=== PATIENT | female | born 1940 | race Caucasian/White ===

== ENCOUNTER 2018-06-21 10:31 | Day surgery (SDC) | payer OTHER, MEDICARE ==
[2018-06-20 13:41] VITALS: BMI 26.4
[2018-06-21 13:12] VITALS: TEMP 97.3
[2018-06-21 13:50] VITALS: BP 109/88; PULSE 70
--- NOTE | 2018-06-23 16:35 | PATH ---
Surgical Pathology Report Patient Name: LESVIA CHOU [facility]. Rec. #: [id number] /Age/Gender: 1940 (Age: 78) / F Account: [id number] Location: [facility]-ENDOSCOPY Taken: 06/21/2018 Received: 06/22/2018 Reported: 06/23/2018 Physicians: Kj Kolb D.O. Specimen(s) Received A: PROXIMAL TRANSVERSE COLON POLYP B: SUBMUCOSAL POLYP AT HEPATIC FLEXURE C: POLYP SIGMOID Clinical History History of colon polyp, rectal bleeding Postoperative diagnosis: Diverticulosis, polyps, hemorrhoids Final Diagnosis A. PROXIMAL TRANSVERSE COLON POLYP, POLYPECTOMY: TUBULAR ADENOMA. B. SUBMUCOSAL POLYP AT HEPATIC FLEXURE, BIOPSY: COLONIC MUCOSA WITH SURFACE HYPERPLASTIC CHANGE. SCANTY BENIGN LOOSE FIBROCONNECTIVE TISSUE PRESENT IN THE SUBMUCOSA. CLINICAL CORRELATION RECOMMENDED. C. SIGMOID POLYP, POLYPECTOMY: HYPERPLASTIC POLYP. Electronically Signed Liane Mullins M.D. Gross Description A. Received in formalin, labeled "proximal transverse colon polyp" is a fernandez, irregular portion of soft tissue measuring 0.5 cm. in greatest dimension. The specimen is submitted in toto in one cassette. B. Received in formalin, labeled "biopsy submucosal polyp at hepatic flexure" are 3 fernandez, irregular portions of soft tissue ranging from 0.2-0.3 cm. in greatest dimension. The specimens are submitted in toto in one cassette. C. Received in formalin, labeled "biopsy sigmoid polyp" are 2 fernandez, irregular portions of soft tissue measuring 0.3 and 0.4 cm. in greatest dimension. The specimens are submitted in toto in one cassette. /06/22/2018 saudi06/22/2018
== END 2018-06-21 14:03 | disposition home or self-care (01) ==
LOC: JASU-ENDO 10:31
PROVIDERS: ATTEND Internal Medicine Gastroenterology
PROC: 0DBN8ZX Excision of Sigmoid Colon, Via Natural or Artificial Opening Endoscopic, Diagnostic (ICD-10-PCS; 2018-06-21)
PROC: 0DBL8ZX Excision of Transverse Colon, Via Natural or Artificial Opening Endoscopic, Diagnostic (ICD-10-PCS; principal; 2018-06-21 12:00)
DX: Z12.11 Encounter for screening for malignant neoplasm of colon (principal); Z86.010 Personal history of colon polyps; K57.30 Diverticulosis of large intestine without perforation or abscess without bleeding; K64.8 Other hemorrhoids; D12.5 Benign neoplasm of sigmoid colon; D12.3 Benign neoplasm of transverse colon
CPT/HCPCS: 88305-TC

== ENCOUNTER 2024-07-09 04:25 | Observation (INO) | payer OTHER, MEDICARE ==
[2024-07-09] MEDS ORDERED: LIDOCAINE 4% PATCH TP ONE (05:45)
[2024-07-09] MEDS: LIDOCAINE 4% PATCH TP ONE (05:47)
[2024-07-09 05:58] LABS: INR 0.99 (0.83-1.09); PROTHROMBIN TIME (PATIENT) 10.8 SEC (9.7-13.0)
[2024-07-09 05:59] LABS: POTASSIUM 3.9 mmol/L (3.5-5.1)
[2024-07-09 06:01] LABS: ACTIVATED PTT 33.1 SECONDS (25.2-36.5)
[2024-07-09 06:01] LABS: ALBUMIN 2.8 g/dl (3.4-5.0); CALCIUM 9.5 mg/dL (8.5-10.1)
[2024-07-09 06:02] LABS: BLOOD UREA NITROGEN 22.5 mg/dL (7-18)
[2024-07-09 06:05] LABS: CREATININE 1.2 mg/dL (0.55-1.3); PHOSPHOROUS 3.7 mg/dL (2.5-4.9)
[2024-07-09 06:06] LABS: BILIRUBIN,TOTAL 0.2 mg/dL (0.2-1); TOT PROT 6.2 g/dl (6.4-8.2)
[2024-07-09 06:10] LABS: N-TERMINAL BNP 877.4 pg/ml (5-450)
[2024-07-09 06:15] LABS: ABSOLUTE IMMATURE GRANULOCYTES 0.04 x10^3/uL (0.0-0.031); BASOPHILS # 0.08 x10^3/uL (0.01-0.08); EOSINOPHIL % 3.5 % (0.7-5.8); EOSINOPHILS # 0.35 x10^3/uL (0.04-0.36); HEMATOCRIT 28.5 % (34.1-44.9); HEMOGLOBIN 8.9 g/dL (11.2-15.7); MCHC 31.2 g/dl (32.2-35.5); MEAN CELL VOLUME 88.5 fl (79.4-94.8); MEAN PLT VOLUME 10.5 fl (9.4-12.3); MONOCYTE # 0.63 x10^3/uL (0.24-0.86); MONOCYTE % 6.2 % (4.7-12.5); PLATELET COUNT 284 x10^3/uL (182-369); RDW 13.8 % (12.5-17.0)
[2024-07-09] MEDS ORDERED: KETOROLAC TROMETHAMINE 15 MG/ML VIAL ONE (08:22)
[2024-07-09] MEDS: KETOROLAC TROMETHAMINE 15 MG/ML VIAL IVPUSH ONE (08:31)
[2024-07-09 11:09] LABS: ABSOLUTE IMMATURE GRANULOCYTES 0.02 x10^3/uL (0.0-0.031); BASOPHILS # 0.03 x10^3/uL (0.01-0.08); EOSINOPHIL % 3.5 % (0.7-5.8); EOSINOPHILS # 0.31 x10^3/uL (0.04-0.36); HEMATOCRIT 25.9 % (34.1-44.9); MCHC 30.9 g/dl (32.2-35.5); MEAN CELL VOLUME 88.7 fl (79.4-94.8); MEAN PLT VOLUME 10.1 fl (9.4-12.3); MONOCYTE # 0.59 x10^3/uL (0.24-0.86); MONOCYTE % 6.6 % (4.7-12.5); PLATELET COUNT 232 x10^3/uL (182-369)
[2024-07-09 17:14] VITALS: BMI 25.0
[2024-07-09] MEDS: KETOROLAC TROMETHAMINE 15 MG/ML VIAL IVPUSH PRN (17:40)
[2024-07-09] MEDS: LIDOCAINE PATCH REMOVAL MC SCH (21:42)
[2024-07-10] MEDS: LEVOTHYROXINE NA 50 MCG TABLET (FP) PO SCH (06:03)
[2024-07-10 09:42] LABS: HEMATOCRIT 26.8 % (34.1-44.9); HEMOGLOBIN 8.2 g/dL (11.2-15.7); MCHC 30.6 g/dl (32.2-35.5); MEAN CELL VOLUME 89.3 fl (79.4-94.8); MEAN PLT VOLUME 10.4 fl (9.4-12.3); PLATELET COUNT 264 x10^3/uL (182-369); RDW 14.1 % (12.5-17.0)
[2024-07-10 10:11] LABS: CALCIUM 8.7 mg/dL (8.5-10.1)
[2024-07-10 10:12] LABS: ALBUMIN 2.3 g/dl (3.4-5.0); BLOOD UREA NITROGEN 25.3 mg/dL (7-18); MAGNESIUM 1.9 mg/dL (1.8-2.4)
[2024-07-10 10:15] LABS: CREATININE 1.4 mg/dL (0.55-1.3); PHOSPHOROUS 3.5 mg/dL (2.5-4.9)
[2024-07-10 10:16] LABS: BILIRUBIN,TOTAL 0.2 mg/dL (0.2-1); TOT PROT 5.2 g/dl (6.4-8.2)
[2024-07-10] MEDS: GABAPENTIN 100 MG CAPSULE PO SCH (14:41)
[2024-07-10 18:58] VITALS: RESP 18
[2024-07-11] MEDS: LEVOTHYROXINE NA 88 MCG TABLET (FP) PO SCH (06:02)
[2024-07-11 08:41] LABS: HEMOGLOBIN 7.7 g/dL (11.2-15.7); MCHC 30.8 g/dl (32.2-35.5); MEAN PLT VOLUME 10.3 fl (9.4-12.3); PLATELET COUNT 258 x10^3/uL (182-369)
[2024-07-11 09:01] LABS: POTASSIUM 3.9 mmol/L (3.5-5.1)
[2024-07-11 09:09] LABS: ALBUMIN 2.2 g/dl (3.4-5.0); BLOOD UREA NITROGEN 24.6 mg/dL (7-18); MAGNESIUM 1.9 mg/dL (1.8-2.4)
[2024-07-11 09:13] LABS: PHOSPHOROUS 3.2 mg/dL (2.5-4.9)
[2024-07-11 09:14] LABS: BILIRUBIN,TOTAL 0.2 mg/dL (0.2-1); CREATININE 1.2 mg/dL (0.55-1.3)
[2024-07-11 14:26] VITALS: BP 144/69; PULSE 73; TEMP 97.9
== END 2024-07-11 17:32 | disposition home or self-care (01) ==
LOC: JER 04:25 → JERBED 10:49 → J5S 14:31
PROVIDERS: ADMIT Internal Medicine
PROC: 3E0333Z Introduction of Anti-inflammatory into Peripheral Vein, Percutaneous Approach (ICD-10-PCS; principal; 2024-07-09)
DX: M19.90 Unspecified osteoarthritis, unspecified site (principal); M25.551 Pain in right hip; N17.9 Acute kidney failure, unspecified; I11.0 Hypertensive heart disease with heart failure; E78.5 Hyperlipidemia, unspecified; E03.9 Hypothyroidism, unspecified; R91.1 Solitary pulmonary nodule; W18.39XA Other fall on same level, initial encounter; D50.0 Iron deficiency anemia secondary to blood loss (chronic); Y93.89 Activity, other specified; Y92.099 Unspecified place in other non-institutional residence as the place of occurrence of the external cause; Z87.891 Personal history of nicotine dependence
CPT/HCPCS: 0241U-QW; 36415; 70450-TC; 71045-TC-FY; 72170-TC-FY; 72192-TC; 73502-TC-RT-FY; 80053; 82550; 83735; 83880; 84100; 84443; 84484; 85025; 85027; 85610; 85730; 86850; 86900; 86901; 93005; 93010; 93306-TC; 93970-TC; 96374; 96376; 97116-GP; 97161-GP; 99285-25; G0378

== ENCOUNTER 2024-07-28 16:00 | Inpatient (IN) | payer OTHER, MEDICARE ==
[2024-07-28 18:18] LABS: ABSOLUTE IMMATURE GRANULOCYTES 0.03 x10^3/uL (0.0-0.031); BASOPHILS # 0.07 x10^3/uL (0.01-0.08); EOSINOPHIL % 3.1 % (0.7-5.8); HEMATOCRIT 31.5 % (34.1-44.9); HEMOGLOBIN 9.7 g/dL (11.2-15.7); MCHC 30.8 g/dl (32.2-35.5); MEAN PLT VOLUME 10.8 fl (9.4-12.3); MONOCYTE # 0.37 x10^3/uL (0.24-0.86); MONOCYTE % 5.8 % (4.7-12.5); PLATELET COUNT 394 x10^3/uL (182-369); RDW 14.2 % (12.5-17.0)
[2024-07-28 18:27] LABS: INR 0.93 (0.83-1.09); PROTHROMBIN TIME (PATIENT) 10.1 SEC (9.7-13.0)
[2024-07-28 18:30] LABS: ACTIVATED PTT 32.4 SECONDS (25.2-36.5)
[2024-07-28 18:48] LABS: POTASSIUM 4.8 mmol/L (3.5-5.1)
[2024-07-28 18:52] LABS: CALCIUM 9.7 mg/dL (8.5-10.1)
[2024-07-28 18:53] LABS: ALBUMIN 2.9 g/dl (3.4-5.0); BLOOD UREA NITROGEN 36.4 mg/dL (7-18); MAGNESIUM 2.2 mg/dL (1.8-2.4)
[2024-07-28 18:56] LABS: CREATININE 1.4 mg/dL (0.55-1.3)
[2024-07-28 18:58] LABS: BILIRUBIN,TOTAL 0.3 mg/dL (0.2-1)
[2024-07-28 18:59] LABS: TOT PROT 6.3 g/dl (6.4-8.2)
[2024-07-28] MEDS ORDERED: MORPHINE SULFATE 2 MG/ML SYRINGE ONE (19:28)
[2024-07-28] MEDS: morphine CARPU-JECT 2 MG/1 ML DISP.SYRIN IVPUSH ONE (19:37)
[2024-07-28] MEDS ORDERED: ACETAMINOPHEN 325 MG TABLET (FP) PO PRN (22:02)
[2024-07-28] MEDS ORDERED: FUROSEMIDE 40 MG/4 ML INJECTABLE VIAL ONE (22:33)
[2024-07-28] MEDS ORDERED: HEPARIN NA (PORCINE) 5,000 UNITS/ML 1ML VIAL ONE (22:33)
[2024-07-28] MEDS: FUROSEMIDE 40 MG/4 ML INJECTABLE VIAL IVPUSH ONE (22:39)
[2024-07-28] MEDS: HEPARIN NA (PORCINE) 5,000 UNITS/ML 1ML VIAL SQ SCH (22:40)
[2024-07-29 00:35] VITALS: BMI 20.4
[2024-07-29] MEDS: FUROSEMIDE 40 MG/4 ML INJECTABLE VIAL IVPUSH SCH (05:52)
[2024-07-29 09:12] LABS: HEMATOCRIT 29.3 % (34.1-44.9); MCHC 30.7 g/dl (32.2-35.5); MEAN CELL VOLUME 85.2 fl (79.4-94.8); MEAN PLT VOLUME 10.8 fl (9.4-12.3); PLATELET COUNT 382 x10^3/uL (182-369); RDW 14.4 % (12.5-17.0)
[2024-07-29 09:44] LABS: POTASSIUM 3.9 mmol/L (3.5-5.1)
[2024-07-29 09:47] LABS: ALBUMIN 2.7 g/dl (3.4-5.0); CALCIUM 9.7 mg/dL (8.5-10.1); MAGNESIUM 1.9 mg/dL (1.8-2.4)
[2024-07-29 09:48] LABS: BLOOD UREA NITROGEN 32.2 mg/dL (7-18)
[2024-07-29 09:50] LABS: CREATININE 1.3 mg/dL (0.55-1.3)
[2024-07-29 09:52] LABS: BILIRUBIN,TOTAL 0.2 mg/dL (0.2-1)
[2024-07-29 09:54] LABS: TOT PROT 5.6 g/dl (6.4-8.2)
[2024-07-29] MEDS: traMADol HCL 50 MG TABLET PO PRN (10:56)
[2024-07-29] MEDS: CEFTRIAXONE 1 G/50 ML PREMIX 50 ML IVPB SCH (12:16)
[2024-07-29] MEDS: PIPERACILLIN/TAZOB 3.375 GM 50 ML IVPB SCH (13:15)
[2024-07-30 08:56] LABS: Reticulocyte % 1.58 % (0.5-1.7)
[2024-07-30 08:57] LABS: ABSOLUTE IMMATURE GRANULOCYTES 0.02 x10^3/uL (0.0-0.031); BASOPHILS # 0.09 x10^3/uL (0.01-0.08); EOSINOPHIL % 4.7 % (0.7-5.8); EOSINOPHILS # 0.29 x10^3/uL (0.04-0.36); HEMATOCRIT 28.2 % (34.1-44.9); HEMOGLOBIN 8.8 g/dL (11.2-15.7); MCHC 31.2 g/dl (32.2-35.5); MEAN CELL VOLUME 86.5 fl (79.4-94.8); MEAN PLT VOLUME 10.9 fl (9.4-12.3); MONOCYTE # 0.51 x10^3/uL (0.24-0.86); MONOCYTE % 8.2 % (4.7-12.5); PLATELET COUNT 383 x10^3/uL (182-369); RDW 14.3 % (12.5-17.0)
[2024-07-30 09:16] LABS: POTASSIUM 3.4 mmol/L (3.5-5.1)
[2024-07-30 09:18] LABS: CALCIUM 9.3 mg/dL (8.5-10.1)
[2024-07-30 09:19] LABS: ALBUMIN 2.7 g/dl (3.4-5.0); BLOOD UREA NITROGEN 33.8 mg/dL (7-18)
[2024-07-30 09:22] LABS: CREATININE 1.6 mg/dL (0.55-1.3)
[2024-07-30 09:24] LABS: BILIRUBIN,TOTAL 0.3 mg/dL (0.2-1); TOT PROT 5.8 g/dl (6.4-8.2)
[2024-07-30 09:36] LABS: N-TERMINAL BNP 483.4 pg/ml (5-450)
[2024-07-31 09:25] LABS: HEMATOCRIT 27.9 % (34.1-44.9); HEMOGLOBIN 8.6 g/dL (11.2-15.7); MCHC 30.8 g/dl (32.2-35.5); MEAN CELL VOLUME 85.1 fl (79.4-94.8); MEAN PLT VOLUME 10.7 fl (9.4-12.3); PLATELET COUNT 354 x10^3/uL (182-369); RDW 14.6 % (12.5-17.0)
[2024-07-31 09:57] LABS: POTASSIUM 3.5 mmol/L (3.5-5.1)
[2024-07-31 10:00] LABS: ALBUMIN 2.6 g/dl (3.4-5.0); CALCIUM 8.9 mg/dL (8.5-10.1)
[2024-07-31 10:01] LABS: MAGNESIUM 1.6 mg/dL (1.8-2.4)
[2024-07-31 10:04] LABS: PHOSPHOROUS 4.2 mg/dL (2.5-4.9)
[2024-07-31 10:05] LABS: BILIRUBIN,TOTAL 0.2 mg/dL (0.2-1); TOT PROT 5.7 g/dl (6.4-8.2)
[2024-07-31 10:06] LABS: CREATININE 1.8 mg/dL (0.55-1.3)
[2024-08-01] MEDS: ACETAMINOPHEN 1000 MG/100 ML BAG IVPB ONE (07:49)
[2024-08-01 09:11] LABS: HEMATOCRIT 27.4 % (34.1-44.9); HEMOGLOBIN 8.5 g/dL (11.2-15.7); MEAN CELL VOLUME 85.1 fl (79.4-94.8); MEAN PLT VOLUME 10.8 fl (9.4-12.3); PLATELET COUNT 334 x10^3/uL (182-369); RDW 14.6 % (12.5-17.0)
[2024-08-01] MEDS: FUROSEMIDE 40 MG/4 ML INJECTABLE VIAL IVPUSH SCH (10:20)
[2024-08-01 10:49] LABS: POTASSIUM 3.1 mmol/L (3.5-5.1)
[2024-08-01 10:54] LABS: CALCIUM 9.3 mg/dL (8.5-10.1)
[2024-08-01 10:55] LABS: ALBUMIN 2.6 g/dl (3.4-5.0); BLOOD UREA NITROGEN 31.1 mg/dL (7-18); MAGNESIUM 1.8 mg/dL (1.8-2.4)
[2024-08-01 10:56] LABS: CREATININE 1.8 mg/dL (0.55-1.3)
[2024-08-01 10:57] LABS: BILIRUBIN,TOTAL 0.3 mg/dL (0.2-1); TOT PROT 5.6 g/dl (6.4-8.2)
[2024-08-01 10:58] LABS: PHOSPHOROUS 4.1 mg/dL (2.5-4.9)
[2024-08-01] MEDS: POTASSIUM CHLORIDE ORAL LIQUID 20 MEQ/15 ML PO ONE (14:48)
[2024-08-01] MEDS: GABAPENTIN 100 MG CAPSULE PO SCH (14:48)
[2024-08-02] MEDS: LEVOTHYROXINE NA 88 MCG TABLET (FP) PO SCH (06:01)
[2024-08-02 09:29] LABS: HEMATOCRIT 29.7 % (34.1-44.9); HEMOGLOBIN 9.1 g/dL (11.2-15.7); MCHC 30.6 g/dl (32.2-35.5); MEAN CELL VOLUME 87.4 fl (79.4-94.8); MEAN PLT VOLUME 10.6 fl (9.4-12.3); PLATELET COUNT 338 x10^3/uL (182-369); RDW 14.6 % (12.5-17.0)
[2024-08-02 10:12] LABS: ALBUMIN 2.7 g/dl (3.4-5.0)
[2024-08-02 10:13] LABS: BLOOD UREA NITROGEN 27.9 mg/dL (7-18); CALCIUM 9.4 mg/dL (8.5-10.1)
[2024-08-02 10:14] LABS: MAGNESIUM 1.9 mg/dL (1.8-2.4)
[2024-08-02 10:16] LABS: CREATININE 1.7 mg/dL (0.55-1.3); PHOSPHOROUS 4.2 mg/dL (2.5-4.9)
[2024-08-02 10:17] LABS: BILIRUBIN,TOTAL 0.4 mg/dL (0.2-1); TOT PROT 5.9 g/dl (6.4-8.2)
[2024-08-02] MEDS: DEXTROSE 5%-0.45% SALINE 1,000 ML IV SCH (11:23)
[2024-08-02 16:48] LABS: POTASSIUM 3.4 mmol/L (3.5-5.1)
[2024-08-02] MEDS: POTASSIUM CHLORIDE ORAL LIQUID 20 MEQ/15 ML PO ONE (17:43)
[2024-08-03 09:43] LABS: POTASSIUM 3.5 mmol/L (3.5-5.1)
[2024-08-03 09:50] LABS: BLOOD UREA NITROGEN 26.2 mg/dL (7-18); CALCIUM 9.1 mg/dL (8.5-10.1)
[2024-08-03 09:57] LABS: CREATININE 1.5 mg/dL (0.55-1.3)
[2024-08-03 20:10] VITALS: BP 131/57; PULSE 66; RESP 17; TEMP 98.1
== END 2024-08-03 22:01 | DRG 602 ==
LOC: JER 16:00 → JERBED 20:26 → OBSVTOIN 22:02 → J5S 22:51
PROVIDERS: ADMIT Student in an Organized Health Care Education/Training Program; ATTEND Internal Medicine
DX: L03.115 Cellulitis of right lower limb (principal); I50.33 Acute on chronic diastolic (congestive) heart failure; E87.0 Hyperosmolality and hypernatremia; N17.9 Acute kidney failure, unspecified; I11.0 Hypertensive heart disease with heart failure; L03.116 Cellulitis of left lower limb; E78.5 Hyperlipidemia, unspecified; E03.9 Hypothyroidism, unspecified; D64.9 Anemia, unspecified
CPT/HCPCS: 36415; 71045-TC-FY; 76775-TC; 80048; 80053; 80061; 82550; 82728; 83036; 83540; 83550; 83735; 83880; 84100; 84439; 84443; 84484; 85025; 85027; 85610; 85730; 86850; 86900; 86901; 93005; 93010; 93306-TC; 93970-TC; 97116-GP; 97162-GP; 99285-25; G0378; J1644

== ENCOUNTER 2024-10-12 16:06 | Inpatient (IN) | payer OTHER, MEDICARE ==
[2024-10-12 16:36] VITALS: BMI 23.6
[2024-10-12] MEDS ORDERED: ACETAMINOPHEN INJECTION 100 ML ONE (17:17)
[2024-10-12 17:27] LABS: ABSOLUTE IMMATURE GRANULOCYTES 0.04 x10^3/uL (0.0-0.031); BASOPHILS # 0.07 x10^3/uL (0.01-0.08); EOSINOPHIL % 3.2 % (0.7-5.8); EOSINOPHILS # 0.26 x10^3/uL (0.04-0.36); MCHC 29.9 g/dl (32.2-35.5); MEAN CELL VOLUME 81.9 fl (79.4-94.8); MEAN PLT VOLUME 11.1 fl (9.4-12.3); MONOCYTE # 0.54 x10^3/uL (0.24-0.86); MONOCYTE % 6.6 % (4.7-12.5); RDW 17.0 % (12.5-17.0)
[2024-10-12] MEDS ORDERED: IBUPROFEN 200 MG TABLET ONE (17:43)
[2024-10-12 17:56] LABS: CO2 18 mmol/L (21-32); GLUCOSE,RANDOM 85 mg/dL (74-106)
[2024-10-12 17:59] LABS: CREATININE 1.2 mg/dL (0.55-1.3); SGOT/AST 40 U/L (15-37); SGPT/ALT 12 U/L (13-61)
[2024-10-12 18:01] LABS: TOT PROT 6.5 g/dl (6.4-8.2)
[2024-10-12 18:02] LABS: ALK PHOS 82 U/L (45-117)
[2024-10-12] MEDS ORDERED: IBUPROFEN 400 MG TABLET (FP) PO ONE (18:05)
[2024-10-12] MEDS: IBUPROFEN 600 MG TABLET (FP) PO ONE (18:10)
[2024-10-12 18:45] LABS: HCV DIAGNOSTIC IN-HOUSE W/RFLX NON-REACTIVE (NONREACTIVE)
[2024-10-12 18:46] LABS: HIV INTERPRETATION NEGATIVE (NEGATIVE)
[2024-10-12] MEDS: IBUPROFEN 200 MG TABLET PO ONE (20:43)
[2024-10-12] MEDS: ACETAMINOPHEN 1000 MG/100 ML BAG IVPB ONE (20:43)
[2024-10-13] MEDS ORDERED: LOPERAMIDE HCL 2 MG CAPSULE PO PRN (00:08)
[2024-10-13] MEDS ORDERED: AMPICILLIN NA/SULBACTAM NA 3 GM VIAL ONE ×3 (03:37→14:16)
[2024-10-13] MEDS: AMPICILLIN NA/SULBACTAM NA 3 GM in SODIUM CHLORIDE 100 ML IVPB SCH (03:59)
[2024-10-13 09:11] LABS: ABSOLUTE IMMATURE GRANULOCYTES 0.02 x10^3/uL (0.0-0.031); BASOPHILS # 0.05 x10^3/uL (0.01-0.08); EOSINOPHIL % 4.7 % (0.7-5.8); EOSINOPHILS # 0.29 x10^3/uL (0.04-0.36); MCHC 30.2 g/dl (32.2-35.5); MEAN CELL VOLUME 81.0 fl (79.4-94.8); MEAN PLT VOLUME 11.2 fl (9.4-12.3); MONOCYTE # 0.45 x10^3/uL (0.24-0.86); MONOCYTE % 7.2 % (4.7-12.5); RDW 16.6 % (12.5-17.0)
[2024-10-13] MEDS: FUROSEMIDE 40 MG/4 ML INJECTABLE VIAL IVPUSH SCH (09:29)
[2024-10-13] MEDS: ENOXAPARIN NA (PORCINE) 40 MG/0.4 ML DISP.SYRIN SQ SCH (09:29)
[2024-10-13 09:59] LABS: CO2 21.0 mmol/L (21-32)
[2024-10-13 10:00] LABS: GLUCOSE,RANDOM 97.0 mg/dL (74-106)
[2024-10-13 10:02] LABS: CREATININE 1.0 mg/dL (0.55-1.3); SGOT/AST 10.0 U/L (15-37); SGPT/ALT 8.0 U/L (13-61)
[2024-10-13 10:04] LABS: TOT PROT 5.1 g/dl (6.4-8.2)
[2024-10-13 10:05] LABS: ALK PHOS 72.0 U/L (45-117)
[2024-10-13] MEDS ORDERED: ARTIFICIAL TEARS OPHTHALMIC DROPS OU PRN (14:48)
[2024-10-13] MEDS: LORATADINE 10 MG TABLET PO SCH (15:20)
[2024-10-13] MEDS: LIDOCAINE 5% TOPICAL PATCH TP SCH (15:20)
[2024-10-13] MEDS: LIDOCAINE PATCH REMOVAL MC SCH (21:22)
[2024-10-14] MEDS: IBUPROFEN 400 MG TABLET (FP) PO PRN (00:27)
[2024-10-14 10:58] LABS: ABSOLUTE IMMATURE GRANULOCYTES 0.06 x10^3/uL (0.0-0.031); BASOPHILS # 0.04 x10^3/uL (0.01-0.08); EOSINOPHIL % 5.1 % (0.7-5.8); EOSINOPHILS # 0.28 x10^3/uL (0.04-0.36); MCHC 30.2 g/dl (32.2-35.5); MEAN CELL VOLUME 79.6 fl (79.4-94.8); MEAN PLT VOLUME 10.9 fl (9.4-12.3); MONOCYTE # 0.45 x10^3/uL (0.24-0.86); MONOCYTE % 8.2 % (4.7-12.5); RDW 17.0 % (12.5-17.0)
[2024-10-14 11:25] LABS: CO2 25.0 mmol/L (21-32); GLUCOSE,RANDOM 98.0 mg/dL (74-106)
[2024-10-14 11:28] LABS: CREATININE 1.2 mg/dL (0.55-1.3); SGOT/AST 10.0 U/L (15-37); SGPT/ALT 9.0 U/L (13-61)
[2024-10-14 11:30] LABS: TOT PROT 5.4 g/dl (6.4-8.2)
[2024-10-14 11:31] LABS: ALK PHOS 69.0 U/L (45-117)
[2024-10-14] MEDS ORDERED: DOCUSATE SODIUM 100 MG CAPSULE (FP) PO PRN (16:37)
[2024-10-14] MEDS: HYDROCORTISONE 2.5% TOPICAL CREAM 30 GM TUBE RC SCH (18:00)
[2024-10-15 09:29] LABS: ABSOLUTE IMMATURE GRANULOCYTES 0.02 x10^3/uL (0.0-0.031); BASOPHILS # 0.05 x10^3/uL (0.01-0.08); EOSINOPHIL % 1.3 % (0.7-5.8); EOSINOPHILS # 0.08 x10^3/uL (0.04-0.36); MCHC 30.1 g/dl (32.2-35.5); MEAN CELL VOLUME 79.5 fl (79.4-94.8); MEAN PLT VOLUME 10.8 fl (9.4-12.3); MONOCYTE # 0.39 x10^3/uL (0.24-0.86); MONOCYTE % 6.6 % (4.7-12.5); RDW 17.1 % (12.5-17.0)
[2024-10-15 10:18] LABS: CO2 26.0 mmol/L (21-32); GLUCOSE,RANDOM 124.0 mg/dL (74-106)
[2024-10-15 10:20] LABS: SGOT/AST 9.0 U/L (15-37); SGPT/ALT 9.0 U/L (13-61)
[2024-10-15 10:21] LABS: CREATININE 1.4 mg/dL (0.55-1.3)
[2024-10-15 10:22] LABS: TOT PROT 5.5 g/dl (6.4-8.2)
[2024-10-15 10:23] LABS: ALK PHOS 69.0 U/L (45-117)
[2024-10-15 10:24] LABS: IRON SERUM 19.0 ug/dL (50-175)
[2024-10-15] MEDS: POTASSIUM CHLORIDE TABS 20 MEQ TABLET.ER (FP) PO ONE (10:38)
[2024-10-15] MEDS ORDERED: AMPICILLIN NA/SULBACTAM NA 3 GM VIAL ONE (20:18)
[2024-10-16] MEDS: AMOX TR/POT CLAV 500MG/125MG TABLETS (FP) PO SCH (09:02)
[2024-10-16 09:12] LABS: ABSOLUTE IMMATURE GRANULOCYTES 0.05 x10^3/uL (0.0-0.031); BASOPHILS # 0.05 x10^3/uL (0.01-0.08); EOSINOPHIL % 0.4 % (0.7-5.8); EOSINOPHILS # 0.03 x10^3/uL (0.04-0.36); MCHC 30.8 g/dl (32.2-35.5); MEAN CELL VOLUME 81.2 fl (79.4-94.8); MEAN PLT VOLUME 11.4 fl (9.4-12.3); MONOCYTE # 0.54 x10^3/uL (0.24-0.86); MONOCYTE % 7.5 % (4.7-12.5); RDW 17.1 % (12.5-17.0)
[2024-10-16 09:45] LABS: CO2 26.0 mmol/L (21-32); GLUCOSE,RANDOM 92.0 mg/dL (74-106)
[2024-10-16 09:48] LABS: CREATININE 1.5 mg/dL (0.55-1.3); SGOT/AST 11.0 U/L (15-37); SGPT/ALT 7.0 U/L (13-61)
[2024-10-16 09:50] LABS: TOT PROT 5.6 g/dl (6.4-8.2)
[2024-10-16 09:51] LABS: ALK PHOS 65.0 U/L (45-117)
[2024-10-16] MEDS: MAGNESIUM 2GM/50ML STERILE WATER IVPB IVPB ONE (11:59)
[2024-10-17 06:45] VITALS: TEMP 97.3
[2024-10-17 13:18] VITALS: BP 145/60; PULSE 63; RESP 18
== END 2024-10-17 11:37 | DRG 603 ==
LOC: JER 16:06 → JERBED 22:19 → J5S 10-13 02:46
PROVIDERS: ADMIT Hospitalist
DX: L03.115 Cellulitis of right lower limb (principal); S32.040A Wedge compression fracture of fourth lumbar vertebra, initial encounter for closed fracture; S32.050A Wedge compression fracture of fifth lumbar vertebra, initial encounter for closed fracture; I50.32 Chronic diastolic (congestive) heart failure; I13.0 Hypertensive heart and chronic kidney disease with heart failure and stage 1 through stage 4 chronic kidney disease, or unspecified chronic kidney disease; L03.116 Cellulitis of left lower limb; R19.7 Diarrhea, unspecified; E03.9 Hypothyroidism, unspecified; E78.5 Hyperlipidemia, unspecified; M81.0 Age-related osteoporosis without current pathological fracture; X58.XXXA Exposure to other specified factors, initial encounter; Y93.9 Activity, unspecified; Y92.89 Other specified places as the place of occurrence of the external cause; Y99.9 Unspecified external cause status; N18.31 Chronic kidney disease, stage 3a; E86.0 Dehydration
CPT/HCPCS: 36415; 71260-TC; 74177-TC; 80053; 82728; 82747; 83540; 83550; 83690; 83735; 83880; 84100; 84132; 84484; 85014; 85025; 86803; 87081; 87086; 87389; 93005; 93010; 93970-TC; 97116-GP; 97162-GP; 99285-25; Q9967